=== PATIENT | male | born 1975 | race African-American/Black ===

== ENCOUNTER 2018-02-14 12:53 | Emergency (ER) | payer BC ==
[~2018-02-14] VITALS: Ht 188 cm; Wt 87.1 kg
[2018-02-14 13:22] VITALS: BP 171/89
[2018-02-14] MEDS ORDERED: HYDR28.311 RC (13:51)
--- NOTE | 2018-02-14 13:52 | PHYS DOC ---
Past Medical History Past Medical History: No Pertinent History Additional Past Medical Histor: back pain, HEMORRHOIDS Past Surgical History: No Surgical History Alcohol Use: None Drug Use: None Adult General Chief Complaint Chief Complaint: OTHER COMPLAINTS HPI HPI Patient is a 42 year old male who presents with hemorrhoids that been present for several days. The patient states that the pain has increased over time. He has been using preparation H with no relief. He does have a history of constipation. Review of Systems Review of Systems Constitutional: Denies fever or chills [] Respiratory: Denies cough or shortness of breath [] Cardiovascular: No additional information not addressed in HPI [] GI: See history of present illness : Denies dysuria or hematuria [] Musculoskeletal: Denies back pain or joint pain [] Integument: Denies rash or skin lesions [] Neurologic: Denies headache, focal weakness or sensory changes [] Endocrine: Denies polyuria or polydipsia [] All other systems were reviewed and found to be within normal limits, except as documented in this note. Allergies Allergies Allergies Coded Allergies Type Severity Reaction Last Updated Verified No Known Drug Allergies 07/27/13 No Physical Exam Physical Exam Constitutional: Well developed, well nourished, no acute distress, non-toxic appearance. [] Cardiovascular:Heart rate regular rhythm, no murmur [] Lungs & Thorax: Bilateral breath sounds clear to auscultation [] Abdomen: Bowel sounds normal, soft, no tenderness, no masses, no pulsatile masses. [] Rectal: There is a cluster of hemorrhoids protruding from the anus which includes to that appear thrombosed Skin: Warm, dry, no erythema, no rash. [] Back: No tenderness, no CVA tenderness. [] Extremities: No tenderness, no cyanosis, no clubbing, ROM intact, no edema. [] Neurologic: Alert and oriented X 3, normal motor function, normal sensory function, no focal deficits noted. [] Psychologic: Affect normal, judgement normal, mood normal. [] Current Patient Data Vital Signs Vital Signs Date Time Temp Pulse Resp B/P (MAP) Pulse Ox O2 Delivery O2 Flow Rate FiO2 02/14/18 13:22 97.9 85 18 171/89 (116) 97 Room Air 97.9 EKG EKG [] Radiology/Procedures Radiology/Procedures [] Course & Med Decision Making Course & Med Decision Making Pertinent Labs and Imaging studies reviewed. (See chart for details) []The patient and I had a long discussion about surgical intervention for hemorrhoids. He has been given the name of a general surgeon to follow-up with. He is in agreement with this plan. He has being prescribed Proctosol and should use Tucks pads for pain relief until he can be seen by surgery. Staff Physician Addendum: I was working in the ER during the course of this patient's visit. I was available for consultation as needed, but I was not directly involved in the care of this patient. Dragon Disclaimer Dragon Disclaimer This electronic medical record was generated, in whole or in part, using a voice recognition dictation system. Departure Departure Impression: Primary Impression: Hemorrhoids Disposition: HOME, SELF-CARE Condition: STABLE Referrals: NO PCP (PCP) MONA SCOTT MD Patient Instructions: Hemorrhoids Additional Instructions: Use the cream for pain relief and comfort. You may also use Tucks pads for comfort. Call Dr. Scott's office today to schedule a follow-up appointment. Scripts Hydrocortisone (PROCTOSOL-HC) 28.35 Gm Cream..g. 1 MEDINA BENITO, #28.35 GM 1 Refill Prov: KATHLEEN MCKEON APRN 02/14/18 KATHLEEN MCKEON APRN Feb 14, 2018 13:52 WADE NASH MD Feb 15, 2018 06:16
== END 2018-02-14 14:12 | disposition home or self-care (01) ==
LOC: ER 12:53
DX: K64.5 Perianal venous thrombosis (principal)
CPT/HCPCS: 99283

== ENCOUNTER 2018-02-18 05:40 | Day surgery (SDC) | payer BC ==
[~2018-02-18] VITALS: Ht 188 cm; Wt 86.6 kg
[~2018-02-18 05:40] MED LIST: HYDR28.311 RC
[2018-02-18] MEDS ORDERED: NEOMY/BACITR/POLYMYXIN OINT PACKET. TP ONE ×2 (05:54→07:05)
[2018-02-18] MEDS ORDERED: BUPIVAC MPF-EPI 0.5%-1:200000 30 ML VIAL. ONE (05:58)
[2018-02-18] MEDS ORDERED: MORPHINE SULFATE 2 MG/ML VIAL. IV PRN ×2 (07:00)
[2018-02-18] MEDS ORDERED: PROCHLORPERAZINE 10 MG/2 ML VIAL. IV PRN ×2 (07:00)
[2018-02-18] MEDS ORDERED: ONDANSETRON PF 4 MG/2 ML VIAL. IV PRN ×2 (07:00)
[2018-02-18] MEDS ORDERED: LIDOCAINE 1% PF 2 ML VIAL. ID PRN ×2 (07:00)
[2018-02-18] MEDS ORDERED: HYDROmorphone 2 MG/ML VIAL IV PRN ×2 (07:00)
[2018-02-18] MEDS ORDERED: fentaNYL PF VIAL 100 MCG/2 ML VIAL IV PRN ×3 (07:00)
[2018-02-18] MEDS ORDERED: IV RINGERS,LACTATED 1000ML 1,000 ML IV SCH ×2 (07:00)
[2018-02-18] MEDS ORDERED: BACITRACIN TOPICAL OINT 14GM TUBE. TP ONE (07:04)
[2018-02-18] MEDS ORDERED: fentaNYL PF VIAL 100 MCG/2 ML VIAL ONE ×3 (07:17→10:22)
[2018-02-18] MEDS ORDERED: PROPOFOL 0 ML IV ONE (07:17)
[2018-02-18] MEDS ORDERED: SEVOFLURANE 31 TO 60 MINUTES. IH ONE (07:17)
[2018-02-18] MEDS ORDERED: DEXAMETHASONE SOD PHOS 20 MG/5 ML VIAL. ONE ×2 (07:17→10:22)
[2018-02-18] MEDS ORDERED: ONDANSETRON PF 4 MG/2 ML VIAL. ONE ×2 (07:17→10:22)
[2018-02-18] MEDS ORDERED: PROPOFOL 20 ML IV ONE ×2 (07:50→10:22)
[2018-02-18] MEDS ORDERED: KETOROLAC 30 MG/ML INJ FOR OR. INJ ONE (07:57)
--- NOTE | 2018-02-18 08:19 | PDOC4 ---
Operative Note Operative Note Date: 02/18/2018 Preoperative diagnosis: Thrombosed internal and external hemorrhoids Postoperative diagnosis: Same Procedure: Hemorrhoidectomy Surgeon: Gregorio Specimen: Hemorrhoids Dictation: Patient is a 42-year-old male who was seen in the office with excruciating rectal pain enlarged thrombosed internal hemorrhoids and external hemorrhoids circumferentially. Procedure of hemorrhoidectomy was explained to the patient detail was benefits were also discussed including bleeding infection alternatives to this procedure also discussed with the patient seemed understanding gave both verbal and written consent had procedure performed. Patient was taken to the operating room placed in supine position general anesthesia was initiated once patient was asleep and intubated is placed in low lithotomy positioning area around the rectum was injected with quarter percent Marcaine with epinephrine hemorrhoids at the 9 o'clock position were grasped with an Allis clamp and they were excised using the Harmonic scalpel there was a second pile of hemorrhoids at the 2 o'clock position which again were excised with the Harmonic and a third pile at the 5 o'clock position all excised with the Harmonic scalpel. Bleeding was controlled with the Harmonic without any difficulties the wound was then dressed with triple antibiotic ointment and 4 x 4's and mesh underwear. Patient was waken next made in the operating room taken recovery in stable condition all sponge instrument needle counts listed as correct estimated blood loss 10 mL RAJESH SORIA MD Feb 18, 2018 08:19
--- NOTE | 2018-02-18 08:20 | DISCH ---
DISCHARGE INSTRUCTIONS Condition on Discharge Condition on Discharge: Stable Activity After Discharge Activity Instructions for Disc: Avoid exertion Other activity instructions: no strenuous activity for 1 week Diet after Discharge Diet after Discharge: Regular Wound Incision Care Other wound/incision instructi: May shower in 24 hours Contacting the [facility] after DC Call your doctor for: If your condition worsens Follow-Up Follow up with: gregory Soria in 2 weeks RAJESH SORIA MD Feb 18, 2018 08:20
[2018-02-18] MEDS: fentaNYL PF VIAL 100 MCG/2 ML VIAL IV PRN ×2 (08:48→08:59)
[2018-02-18] MEDS ORDERED: OXYC-323 PO (08:55)
[2018-02-18] MEDS ORDERED: oxyCODONE/APAP 5/325 1 TAB TABLET PO ONE (09:15)
[2018-02-18 09:30] VITALS: BP 148/78
[2018-02-18] MEDS ORDERED: LIDOCAINE 2% PF Vial for OR 5 ML VIAL. ONE (10:22)
--- NOTE | 2018-02-21 15:07 | PATHOLOGY ---
[facility] Accession Number: [id number] . 01 Material submitted: . HEMORRHOIDS . 01 Clinical history: . Hemorrhoids . 02 Diagnosis: Segments of skin and anorectal mucosa and underlying soft tissue, hemorrhoidectomy: - Hemorrhoids showing focal thrombosis and early organization, and focal mild acute and chronic inflammation. (JPM:marlene; 02/21/2018) QMS/02/21/2018 . 02 Comment: There is no evidence of malignancy. . 02 Electronically signed: . Roger Hyde MD, Pathologist NPI- [id number] . 01 Gross description: . Received in formalin labeled "Stack, [place], hemorrhoids" are multiple cotto-brown hemorrhagic segments of epithelial lined soft tissue measuring in aggregate 6.0 x 4.7 x 1.7 cm. Upon sectioning, multiple dilated blood vessels are identified. Asbestos Removal Worker sections are submitted in cassette A1. ([facility]; 02/20/2018) SYC/SYC . 02 Pathologist provided ICD-10: K64.5 . 02 CPT . 069012 Specimen Comment: A courtesy copy of this report has been sent to Specimen Comment: [phone]. Specimen Comment: Report sent to Performed at: 01 [facility] [address], [place], [place] [id number] MD Kenan Morrow MD Phone: [phone] Performed at: 02 [facility] [place] [address] [place], [place] [id number] MD Roger Hyde MD Phone: [phone]
== END 2018-02-18 09:45 | disposition home or self-care (01) ==
LOC: SURG 05:40
PROVIDERS: ATTEND Surgery
DX: K64.5 Perianal venous thrombosis (principal); K64.8 Other hemorrhoids; F17.200 Nicotine dependence, unspecified, uncomplicated
CPT/HCPCS: 46260; 88304; A7015; J0690; J1100; J1885; J2405; J2704; J3010; J3490; J2001; A4461